=== PATIENT | female | born 1975 | race Caucasian/White ===

== ENCOUNTER 2017-04-13 17:34 | Emergency (ER) | payer MEDICAID ==
[~2017-04-13] VITALS: Ht 154.9 cm; Wt 47.3 kg
[~2017-04-13 17:34] MED LIST: BUTA1CAP57 PO; CODE1CAP9 PO; HYDR-3307 PO
[2017-04-13 17:36] VITALS: BP 133/89
[2017-04-13] MEDS ORDERED: HYDROcodone/APAP 5/325 TABLET PO STA (18:46)
[2017-04-13] MEDS ORDERED: PLEASE ENTER ALLERGIES MC SCH ×2 (19:00)
[2017-04-13] MEDS ORDERED: HYDROcodone/APAP 5/325 TABLET ONE (19:26)
== END 2017-04-13 19:39 | disposition home or self-care (01) ==
LOC: ED 19:00
DX: S16.1XXA Strain of muscle, fascia and tendon at neck level, initial encounter (principal); V49.49XA Driver injured in collision with other motor vehicles in traffic accident, initial encounter; Y93.89 Activity, other specified; Y92.410 Unspecified street and highway as the place of occurrence of the external cause; Y99.8 Other external cause status; S60.221A Contusion of right hand, initial encounter; S60.011A Contusion of right thumb without damage to nail, initial encounter; G43.909 Migraine, unspecified, not intractable, without status migrainosus
CPT/HCPCS: 72050; 99284

== ENCOUNTER 2019-12-17 10:14 | Emergency (ER) | payer SELFPAY ==
[~2019-12-17] VITALS: Ht 157.5 cm; Wt 56.0 kg
[~2019-12-17 10:14] MED LIST changes: +HYDR-3246 PO; -HYDR-3307 PO
[2019-12-17 10:28] VITALS: BP 118/86
--- NOTE | 2019-12-17 10:58 | NUR ---
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
--- NOTE | 2019-12-17 11:24 | NUR ---
Patient given discharge instructions and Rx, they have confirmed that they understand the instructions. Patient ambulatory with steady gait.
== END 2019-12-17 11:32 | disposition home or self-care (01) ==
LOC: ED 11:25
DX: K02.9 Dental caries, unspecified (principal); K08.89 Other specified disorders of teeth and supporting structures; G43.909 Migraine, unspecified, not intractable, without status migrainosus; Z90.710 Acquired absence of both cervix and uterus; Z90.722 Acquired absence of ovaries, bilateral
CPT/HCPCS: 99282